=== PATIENT | female | born 1940 | race Caucasian/White ===

== ENCOUNTER 2019-04-05 11:26 | Observation (INO) | payer MEDICARE ==
--- NOTE | 2019-04-05 11:51 | ED ---
General Adult HPI - General Chief complaint: Altered Mental Status Stated complaint: dementia/UTI-sent by Dr. Meeks Seen by Provider: 04/05/19 11:40 Source: patient, family, RN notes reviewed Mode of arrival: wheelchair Limitations: no limitations - History of Present Illness Initial comments: Patient is a 78-year-old female presenting to the emergency department from Dr. Westbrook office. Patient reportedly has been more agitated and confused than normal. Patient does have chronic dementia. Patient has recent diagnosis of urinary tract infection and has been refusing her medications. Patient states she has no complaints and requests to leave. Patient limits providing history and exam. - Related Data Home Medications Medication Instructions Recorded Confirmed Aspirin EC [Ecotrin Low Dose] 81 mg PO DAILY 04/05/19 04/05/19 Atenolol [Tenormin] 50 mg PO DAILY 04/05/19 04/05/19 Atorvastatin [Lipitor] 20 mg PO DAILY 04/05/19 04/05/19 Cholecalciferol (Vitamin D3) 2,000 unit PO DAILY 04/05/19 04/05/19 [Vitamin D3] Ciprofloxacin HCl [Cipro] 500 mg PO BID 04/05/19 04/05/19 Losartan Potassium 100 mg PO DAILY 04/05/19 04/05/19 Allergies Allergy/AdvReac Type Severity Reaction Status Date / Time No Known Allergies Allergy Verified 04/05/19 11:47 Review of Systems ROS Statement: Those systems with pertinent positive or pertinent negative responses have been documented in the HPI. ROS Other: All systems not noted in ROS Statement are negative. Constitutional: Denies: fever Eyes: Denies: eye pain ENT: Denies: ear pain Respiratory: Denies: cough, dyspnea Cardiovascular: Denies: chest pain Endocrine: Denies: fatigue Gastrointestinal: Denies: abdominal pain Genitourinary: Reports: as per HPI Skin: Denies: rash Neurological: Reports: as per HPI. Denies: weakness Past Medical History Past Medical History: Hypertension Additional Past Medical History / Comment(s): UTI, Colitis, Glaucoma History of Any Multi-Drug Resistant Organisms: None Reported Past Surgical History: Appendectomy, Cholecystectomy Past Psychological History: No Psychological Hx Reported Smoking Status: Never smoker Past Alcohol Use History: None Reported Past Drug Use History: None Reported General Exam Limitations: no limitations General appearance: alert, in no apparent distress Head exam: Present: atraumatic Eye exam: Present: normal appearance Neck exam: Present: normal inspection Respiratory exam: Present: normal lung sounds bilaterally Cardiovascular Exam: Present: regular rate, normal rhythm GI/Abdominal exam: Present: soft. Absent: tenderness Extremities exam: Present: normal inspection Neurological exam: Present: alert, normal gait. Absent: motor sensory deficit Psychiatric exam: Present: agitated Skin exam: Present: normal color. Absent: rash Course Vital Signs 04/05/19 04/05/19 04/05/19 11:34 12:23 16:00 Temperature 97 F L Pulse Rate 69 Respiratory 18 18 16 Rate O2 Sat by Pulse 94 L Oximetry EKG Findings - EKG Comments: EKG Findings:: Sinus bradycardia 52. PA 182. QRS 86. QT 490. QTC 463. Normal axis. Septal Q waves. T-wave inversion V5 V6. Medical Decision Making - Medical Decision Making Case was discussed with Dr. Westbrook, who will admit his patient. - Lab Data Result diagrams: 04/05/19 15:10 04/05/19 13:00 Lab Results 04/05/19 04/05/19 04/05/19 Range/Units 13:00 13:26 13:26 WBC (3.8-10.6) k/uL RBC (3.80-5.40) m/uL Hgb (11.4-16.0) gm/dL Hct (34.0-46.0) % MCV (80.0-100.0) fL MCH (25.0-35.0) pg MCHC (31.0-37.0) g/dL RDW (11.5-15.5) % Plt Count (150-450) k/uL Neutrophils % % Lymphocytes % % Monocytes % % Eosinophils % % Basophils % % Neutrophils # (1.3-7.7) k/uL Lymphocytes # (1.0-4.8) k/uL Monocytes # (0-1.0) k/uL Eosinophils # (0-0.7) k/uL Basophils # (0-0.2) k/uL PT 9.4 (9.0-12.0) sec INR 0.8 (<1.2) APTT 22.0 (22.0-30.0) sec Sodium 137 (137-145) mmol/L Potassium 4.5 (3.5-5.1) mmol/L Chloride 106 (98-107) mmol/L Carbon Dioxide 23 (22-30) mmol/L Anion Gap 8 mmol/L BUN 13 (7-17) mg/dL Creatinine 0.81 (0.52-1.04) mg/dL Est GFR (CKD-EPI)AfAm 82 (>60 ml/min/1.73 sqM) Est GFR (CKD-EPI)NonAf 71 (>60 ml/min/1.73 sqM) Glucose 110 H (74-99) mg/dL Calcium 8.9 (8.4-10.2) mg/dL Total Bilirubin 1.1 (0.2-1.3) mg/dL AST 25 (14-36) U/L ALT 19 (9-52) U/L Alkaline Phosphatase 61 (38-126) U/L Creatine Kinase 69 (30-135) U/L Troponin I <0.012 (0.000-0.034) ng/mL Total Protein 5.8 L (6.3-8.2) g/dL Albumin 3.2 L (3.5-5.0) g/dL Urine Color Urine Appearance (Clear) Urine pH (5.0-8.0) Ur Specific [place] (1.001-1.035) Urine Protein (Negative) Urine Glucose (UA) (Negative) Urine Ketones (Negative) Urine Blood (Negative) Urine Nitrite (Negative) Urine Bilirubin (Negative) Urine Urobilinogen (<2.0) mg/dL Ur Leukocyte Esterase (Negative) Urine RBC (0-5) /hpf Urine WBC (0-5) /hpf Ur Squamous Epith Cells (0-4) /hpf Urine Bacteria (None) /hpf Hyaline Casts (0-2) /lpf Urine Mucus (None) /hpf 04/05/19 04/05/19 Range/Units 15:10 16:11 WBC 10.1 (3.8-10.6) k/uL RBC 4.32 (3.80-5.40) m/uL Hgb 12.3 (11.4-16.0) gm/dL Hct 38.0 (34.0-46.0) % MCV 88.0 (80.0-100.0) fL MCH 28.5 (25.0-35.0) pg MCHC 32.4 (31.0-37.0) g/dL RDW 14.3 (11.5-15.5) % Plt Count 213 (150-450) k/uL Neutrophils % 83 % Lymphocytes % 9 % Monocytes % 5 % Eosinophils % 1 % Basophils % 0 % Neutrophils # 8.4 H (1.3-7.7) k/uL Lymphocytes # 0.9 L (1.0-4.8) k/uL Monocytes # 0.5 (0-1.0) k/uL Eosinophils # 0.1 (0-0.7) k/uL Basophils # 0.0 (0-0.2) k/uL PT (9.0-12.0) sec INR (<1.2) APTT (22.0-30.0) sec Sodium (137-145) mmol/L Potassium (3.5-5.1) mmol/L Chloride (98-107) mmol/L Carbon Dioxide (22-30) mmol/L Anion Gap mmol/L BUN (7-17) mg/dL Creatinine (0.52-1.04) mg/dL Est GFR (CKD-EPI)AfAm (>60 ml/min/1.73 sqM) Est GFR (CKD-EPI)NonAf (>60 ml/min/1.73 sqM) Glucose (74-99) mg/dL Calcium (8.4-10.2) mg/dL Total Bilirubin (0.2-1.3) mg/dL AST (14-36) U/L ALT (9-52) U/L Alkaline Phosphatase (38-126) U/L Creatine Kinase (30-135) U/L Troponin I (0.000-0.034) ng/mL Total Protein (6.3-8.2) g/dL Albumin (3.5-5.0) g/dL Urine Color Yellow Urine Appearance Clear (Clear) Urine pH 7.5 (5.0-8.0) Ur Specific [place] 1.010 (1.001-1.035) Urine Protein 3+ H (Negative) Urine Glucose (UA) Negative (Negative) Urine Ketones Negative (Negative) Urine Blood Negative (Negative) Urine Nitrite Negative (Negative) Urine Bilirubin Negative (Negative) Urine Urobilinogen <2.0 (<2.0) mg/dL Ur Leukocyte Esterase Negative (Negative) Urine RBC <1 (0-5) /hpf Urine WBC 1 (0-5) /hpf Ur Squamous Epith Cells <1 (0-4) /hpf Urine Bacteria Rare H (None) /hpf Hyaline Casts 1 (0-2) /lpf Urine Mucus Rare H (None) /hpf - Radiology Data Radiology results: report reviewed (Computed tomography scan the brain shows no acute intercranial hemorrhage or shift. Atrophy, old lacunar injury.), image reviewed (Chest x-ray shows no acute process) Disposition Clinical Impression: Altered mental status, Syncope Disposition: ADMITTED IP TO THIS HOSP Is patient prescribed a controlled substance at d/c from ED?: No Referrals: Mikie Westbrook MD [Primary Care Provider] - 1-2 days Decision Time: 16:44
[2019-04-05] MEDS ORDERED: LORazepam 1 MG TAB PO STA (12:15)
[2019-04-05 13:29] LABS: Albumin 3.2 g/dL (3.5-5.0); Calcium 8.9 mg/dL (8.4-10.2); Potassium 4.5 mmol/L (3.5-5.1); Total Bilirubin 1.1 mg/dL (0.2-1.3); Total Protein 5.8 g/dL (6.3-8.2)
[2019-04-05 13:51] LABS: INR 0.8 (<1.2); Prothrombin Time 9.4 sec (9.0-12.0)
--- NOTE | 2019-04-05 14:15 | CT ---
EXAMINATION TYPE: CT brain wo con DATE OF EXAM: 04/05/2019 COMPARISON: None HISTORY: Dementia, UTI-sent by Altered mental status. CT DLP: 2194.4 mGycm Automated exposure control for dose reduction was used. TECHNIQUE: CT scan of the head is performed without contrast. FINDINGS: There is no acute intracranial hemorrhage or midline shift identified. No suspicious extr a-axial fluid collection. There is diffuse ventricular and sulcal prominence consistent with diffuse age-related cerebral atrophy. There is low-attenuation in the periventricular white most commonly re lated to chronic small vessel ischemic change. Extensive atherosclerosis is seen in the intracranial arteries. There is also an old lacunar injury of the right thalamus. The globes are intact and the v isualized sinuses are clear. IMPRESSION: 1. No acute intracranial hemorrhage or midline shift. 2. Diffuse age-related cerebral atrophy and confluent areas of hypoattenuation most commonly related to microangiopathy. 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
--- NOTE | 2019-04-05 15:09 | XR ---
EXAMINATION TYPE: XR chest 2V DATE OF EXAM: 04/05/2019 COMPARISON: NONE HISTORY: Altered mental status TECHNIQUE: Frontal and lateral views of the chest are obtained. FINDINGS: There is an enlarged cardiomediastinal silhouette. Minimal retrocardiac airspace disease l ikely represents atelectasis. Advanced arthropathy of the right shoulder is noted. Mild degenerative changes of the spine and diffuse osseous demineralization. Cholecystectomy clips are seen. No pneumot horax or pleural effusion. IMPRESSION: Minimal retrocardiac airspace disease likely represents atelectasis.
[2019-04-05 15:20] LABS: Basophils % (A) 0 %; Eosinophils # (A) 0.1 k/uL (0-0.7); Eosinophils % (A) 1 %; HGB 12.3 gm/dL (11.4-16.0); Lymphocytes # (A) 0.9 k/uL (1.0-4.8); Lymphocytes % (A) 9 %; MCH 28.5 pg (25.0-35.0); MCHC 32.4 g/dL (31.0-37.0); Mean Platelet Volume 6.6; Monocytes # (A) 0.5 k/uL (0-1.0); Monocytes % (A) 5 %; Neutrophils # (A) 8.4 k/uL (1.3-7.7); Neutrophils % (A) 83 %; Platelet Count 213 k/uL (150-450); RBC 4.32 m/uL (3.80-5.40); RDW 14.3 % (11.5-15.5); WBC 10.1 k/uL (3.8-10.6)
[2019-04-05] MEDS ORDERED: LORazepam 2 MG/ML INJ IV STA (15:36)
[2019-04-05 16:31] LABS: Appearance,Urine Clear (Clear); Bacteria,Urine Rare /hpf; Bilirubin,Urine Negative (Negative); Blood,Urine Negative (Negative); Color,Urine Yellow; Glucose,Urine (UA) Negative (Negative); Hyaline Casts,Urine 1 /lpf (0-2); Ketones,Urine Negative (Negative); Leukocyte Esterase,Urine Negative (Negative); Mucus,Urine Rare /hpf; Nitrite,Urine Negative (Negative); PH, Urine 7.5 (5.0-8.0); Protein,Urine 3+ (Negative); RBC,Urine <1 /hpf (0-5); Squamous Epithelial Cell,Urine <1 /hpf (0-4); Urobilinogen,Urine <2.0 mg/dL (<2.0); WBC,Urine 1 /hpf (0-5)
[2019-04-05 16:44] LABS: Amphetamine Screen,Urine Not Detected (NotDetected); Barbiturate Screen,Urine Not Detected (NotDetected); Benzodiazepines Screen,Urine Detected (NotDetected); Cocaine Screen,Urine Not Detected (NotDetected); Methadone Screen, Urine Not Detected (NotDetected); Opiate Screen,Urine Not Detected (NotDetected); Oxycodone Screen, Urine Not Detected (NotDetected); Phencyclidine Screen,Urine Not Detected (NotDetected); Tricyclic Antidepressant,Urine Not Detected (NotDetected); Urn Cannabinoid Scrn Not Detected (NotDetected)
[2019-04-05] MEDS ORDERED: NALOXONE 0.4 MG/ML 1 ML VIAL IV PRN (16:45)
[2019-04-05] MEDS ORDERED: LORazepam 0.5 MG TAB PO PRN (16:45)
[2019-04-05] MEDS ORDERED: LORazepam 2 MG/ML INJ IV PRN ×2 (16:45→20:14)
[2019-04-05] MEDS ORDERED: SODIUM CHLORIDE 0.9% 1,000 ML IV SCH (16:45)
[2019-04-05] MEDS ORDERED: ACETAMINOPHEN TAB 325 MG TAB PO PRN (16:45)
[2019-04-05] MEDS ORDERED: ALPRAZolam 0.25 MG TAB PO PRN (16:45)
[2019-04-05] MEDS: ATENOLOL 50 MG TAB PO SCH (20:57)
[2019-04-05] MEDS: amLODIPine 5 MG TAB PO SCH (20:57)
[2019-04-05] MEDS: CIPROFLOXACIN HCL 500 MG TAB PO SCH (20:57)
[2019-04-05] MEDS ORDERED: hydrALAZINE HCL 20 MG/ML 1 ML VIAL IVP PRN (22:02)
--- NOTE | 2019-04-06 08:43 | P.HPIM ---
History of Present Illness H&P Date: 04/06/19 Chief Complaint: Altered mental status This is a history of physical 78-year-old white female who is been declining from a cognitive perspective over the last several years. Element of dementia as noted but she had delirium yesterday and has been difficult to take care of. Also, element of hypertensive urgency was noted yesterday. No sniffing chest pain but the patient is unable to give any type of complaints. Element of headache stated she was evaluated in the emergency room and is now admitted for appropriate altered mental status agitation syncope and hypertension. Review of Systems ROS unobtainable: due to mental status Past Medical History Past Medical History: Dementia, Hypertension Additional Past Medical History / Comment(s): UTI, Colitis, Glaucoma History of Any Multi-Drug Resistant Organisms: None Reported Past Surgical History: Appendectomy, Cholecystectomy Past Psychological History: Anxiety Smoking Status: Never smoker Past Alcohol Use History: None Reported Past Drug Use History: None Reported Medications and Allergies Home Medications Medication Instructions Recorded Confirmed Type Aspirin EC [Ecotrin Low Dose] 81 mg PO DAILY 04/05/19 04/05/19 History Atenolol [Tenormin] 50 mg PO DAILY 04/05/19 04/05/19 History Atorvastatin [Lipitor] 20 mg PO DAILY 04/05/19 04/05/19 History Cholecalciferol (Vitamin D3) 2,000 unit PO DAILY 04/05/19 04/05/19 History [Vitamin D3] Ciprofloxacin HCl [Cipro] 500 mg PO BID 04/05/19 04/05/19 History RX: Losartan Potassium 100 mg PO DAILY 04/05/19 04/05/19 History Allergies Allergy/AdvReac Type Severity Reaction Status Date / Time No Known Allergies Allergy Verified 04/05/19 11:47 Physical Exam Vitals: Vital Signs Temp Pulse Pulse Pulse Resp BP BP 04/06/19 05:00 97.7 F 66 18 176/79 04/05/19 23:40 63 69 18 181/92 04/05/19 21:00 60 18 238/132 04/05/19 19:46 63 18 232/122 04/05/19 18:25 97.9 F 66 18 172/83 04/05/19 17:32 97.6 F 16 04/05/19 16:00 16 04/05/19 12:23 18 04/05/19 11:34 97 F L 69 18 Pulse Ox 04/06/19 05:00 98 04/05/19 23:40 04/05/19 21:00 04/05/19 19:46 97 04/05/19 18:25 100 04/05/19 17:32 04/05/19 16:00 04/05/19 12:23 04/05/19 11:34 94 L Intake and Output 04/05/19 04/06/19 04/06/19 22:59 06:59 14:59 Other: Voiding Method Toilet # Voids 1 1 # Bowel Movements 1 - Constitutional General appearance: no acute distress - EENT Eyes: EOMI - Neck Neck: no lymphadenopathy - Respiratory Respiratory: bilateral: CTA - Cardiovascular Rhythm: regular Heart sounds: normal: S1, S2 Abnormal Heart Sounds: no S3 Gallop - Gastrointestinal General gastrointestinal: soft, no tenderness - Psychiatric Psychiatric: no A&O x's 3, no intact judgment & insight Results CBC & Chem 7: 04/05/19 15:10 04/05/19 13:00 Labs: Abnormal Lab Results - Last 24 Hours (Table) 04/05/19 04/05/19 04/05/19 Range/Units 13:00 15:10 16:11 Neutrophils # 8.4 H (1.3-7.7) k/uL Lymphocytes # 0.9 L (1.0-4.8) k/uL Glucose 110 H (74-99) mg/dL Total Protein 5.8 L (6.3-8.2) g/dL Albumin 3.2 L (3.5-5.0) g/dL Urine Protein 3+ H (Negative) Urine Bacteria Rare H (None) /hpf Urine Mucus Rare H (None) /hpf U Benzodiazepines Scrn Detected H (NotDetected) Microbiology - Last 24 Hours (Table) 04/05/19 16:11 Urine Culture - Preliminary Urine,Catheterized Thrombosis Risk Factor Assmnt - Choose All That Apply Any of the Below Risk Factors Present?: No Other Risk Factors: Yes Each Risk Factor Represents 3 Points: Age 75 years or older Other congenital or acquired thrombophilia - If yes, enter type in comment: No Thrombosis Risk Factor Assessment Total Risk Factor Score: 3 Thrombosis Risk Factor Assessment Level: Moderate Risk Assessment and Plan (1) Dementia Current Visit: Yes Status: Acute Code(s): F03.90 - UNSPECIFIED DEMENTIA WITHOUT BEHAVIORAL DISTURBANCE SNOMED Code(s): 87103567 (2) Hypertensive urgency Current Visit: Yes Status: Acute Code(s): I16.0 - HYPERTENSIVE URGENCY SNOMED Code(s): 577928760 (3) Altered mental status Current Visit: Yes Status: Acute Code(s): R41.82 - ALTERED MENTAL STATUS, UNSPECIFIED SNOMED Code(s): 929123346 Plan: Cardiology and neurology have been consulted. Check CBC and CMP in a.m. Titrate medication. She's been started on hydralazine. Otherwise, await neurologic evaluation. The patient's family preference is to try to take her home with home health. See orders otherwise. Time with Patient: Greater than 30
[2019-04-06] MEDS ORDERED: ASPIRIN 81 MG PO SCH (09:00)
[2019-04-06] MEDS ORDERED: CHOLECALCIFEROL 1,000 UNIT TAB PO SCH (09:00)
[2019-04-06] MEDS ORDERED: LOSARTAN 50 MG TAB PO SCH (09:00)
[2019-04-06] MEDS ORDERED: ATORVASTATIN 20 MG TAB PO SCH (09:00)
[2019-04-06 09:22] LABS: Basophils % (A) 1 %; Eosinophils # (A) 0.1 k/uL (0-0.7); Eosinophils % (A) 2 %; HCT 34.6 % (34.0-46.0); HGB 11.5 gm/dL (11.4-16.0); Lymphocytes # (A) 1.1 k/uL (1.0-4.8); Lymphocytes % (A) 17 %; MCH 29.1 pg (25.0-35.0); MCHC 33.3 g/dL (31.0-37.0); MCV 87.4 fL (80.0-100.0); Mean Platelet Volume 6.7; Monocytes # (A) 0.5 k/uL (0-1.0); Monocytes % (A) 7 %; Neutrophils # (A) 4.7 k/uL (1.3-7.7); Neutrophils % (A) 71 %; Platelet Count 208 k/uL (150-450); RBC 3.95 m/uL (3.80-5.40); RDW 14.1 % (11.5-15.5); WBC 6.5 k/uL (3.8-10.6)
[2019-04-06] MEDS: amLODIPine 5 MG TAB PO SCH (10:00)
[2019-04-06] MEDS: CIPROFLOXACIN HCL 500 MG TAB PO SCH (10:00)
[2019-04-06] MEDS: ATENOLOL 50 MG TAB PO SCH (10:00)
--- NOTE | 2019-04-06 11:30 | P.CRDCN ---
<Kavitha Restrepo - Last Filed: 04/06/19 10:56> History of Present Illness History of present illness: This is Kavitha Restrepo PA-C dictating a consult on this patient The patient was interviewed and examined by me as well as by Dr. Howard Case discussed with Dr. Howard and he agrees with the plan of care IMPRESSION / ASSESSMENT: Syncopal episode, etiology unclear, possibly related to Ativan, brain CT showed no acute intracranial hemorrhage or midline shift Hypertension, blood pressure has been elevated since admission Dementia PLAN: Increase amlodipine to 5 mg twice a day Decrease atenolol 50 mg daily to avoid bradycardia Discontinue IV hydralazine Recommend manual blood pressure with appropriate cuff size Check TSH Check orthostatic vitals HPI Patient is a 78-year-old female with a past medical history of hypertension and dementia who presented to the emergency department with altered mental status and a syncopal episode. Patient is a poor historian secondary to her dementia, her history was obtained from the chart as well as her [id number] who was present at the bedside. Patient has apparently been more confused and combative and went to see her primary care doctor who gave her Ativan. After receiving the Ativan she apparently collapsed and was sent to the emergency department. Upon presentation her blood pressure was elevated at 172/83, pulse was 69. EKG showed sinus bradycardia with asymmetric T-wave inversions in the lateral precordial leads. Troponins negative 3. She was started on her home antihypertensive medications atenolol and losartan as well as started on Norvasc and hydralazine. Her blood pressure has remained elevated. Patient seen and examined resting comfortably in bed. Nursing staff has been able to get her up to the bathroom and she seems more weak than normal according to her [id number]. Patient complains of a slight headache but otherwise denies any other symptoms. denies chest pain, palpitations, shortness of breath, dizzin ess, lightheadedness. Per family, she is a nondiabetic and has no history of heart disease or strokes, she has passed out one time years ago when she was dehydrated in [place] ROS: Unable to obtain secondary to altered mental status EXAMINATION: Temperature is 97.7F, pulse 66, respirations 18, blood pressure 176/79, oxygen saturation 98% on room air Patient seen and examined resting comfortably in bed, in no acute distress Lung exam is difficult secondary to patient unable to follow commands to take a deep breath, breath sounds clear Heart is regular, normal S1-S2, no murmurs appreciated No lower extremity edema noted No elevated JVD REVIEW OF LABS, ECG & MEDICAL DATA Chest x-ray showed atelectasis, no pneumothorax or pleural effusion Brain CT showed no acute intracranial hemorrhage or midline shift, diffuse age- related cerebral atrophy, 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 WBC 6.5, hemoglobin 11.5, platelet count 208, potassium 4.5, sodium 137, BUN 13, creatinine 0.81, troponins negative 3 EKG showed sinus bradycardia with asymmetrical T-wave inversions in the lateral precordial leads Past Medical History Past Medical History: Dementia, Hypertension Additional Past Medical History / Comment(s): UTI, Colitis, Glaucoma History of Any Multi-Drug Resistant Organisms: None Reported Past Surgical History: Appendectomy, Cholecystectomy Past Psychological History: Anxiety Smoking Status: Never smoker Past Alcohol Use History: None Reported Past Drug Use History: None Reported Medications and Allergies Home Medications Medication Instructions Recorded Confirmed Type Aspirin EC [Ecotrin Low Dose] 81 mg PO DAILY 04/05/19 04/05/19 History Atenolol [Tenormin] 50 mg PO DAILY 04/05/19 04/05/19 History Atorvastatin [Lipitor] 20 mg PO DAILY 04/05/19 04/05/19 History Cholecalciferol (Vitamin D3) 2,000 unit PO DAILY 04/05/19 04/05/19 History [Vitamin D3] Ciprofloxacin HCl [Cipro] 500 mg PO BID 04/05/19 04/05/19 History Losartan Potassium 100 mg PO DAILY 04/05/19 04/05/19 History Allergies Allergy/AdvReac Type Severity Reaction Status Date / Time No Known Allergies Allergy Verified 04/05/19 11:47 Physical Exam Vitals: Vital Signs Temp Pulse Pulse Pulse Resp BP BP 04/06/19 05:00 97.7 F 66 18 176/79 04/05/19 23:40 63 69 18 181/92 04/05/19 21:00 60 18 238/132 04/05/19 19:46 63 18 232/122 04/05/19 18:25 97.9 F 66 18 172/83 04/05/19 17:32 97.6 F 16 04/05/19 16:00 16 04/05/19 12:23 18 04/05/19 11:34 97 F L 69 18 Pulse Ox 04/06/19 05:00 98 04/05/19 23:40 04/05/19 21:00 04/05/19 19:46 97 04/05/19 18:25 100 04/05/19 17:32 04/05/19 16:00 04/05/19 12:23 04/05/19 11:34 94 L Intake and Output 04/05/19 04/06/19 04/06/19 22:59 06:59 14:59 Other: Voiding Method Toilet # Voids 1 1 # Bowel Movements 1 1 Results 04/06/19 08:23 04/05/19 13:00 Cardiac Enzymes 04/05/19 04/05/19 04/05/19 Range/Units 13:00 13:26 19:44 AST 25 (14-36) U/L Troponin I <0.012 <0.012 (0.000-0.034) ng/mL 04/06/19 04/06/19 Range/Units 01:07 08:23 AST (14-36) U/L Troponin I <0.012 <0.012 (0.000-0.034) ng/mL Coagulation 04/05/19 Range/Units 13:26 PT 9.4 (9.0-12.0) sec APTT 22.0 (22.0-30.0) sec CBC 04/05/19 04/06/19 Range/Units 15:10 08:23 WBC 10.1 6.5 (3.8-10.6) k/uL RBC 4.32 3.95 (3.80-5.40) m/uL Hgb 12.3 11.5 (11.4-16.0) gm/dL Hct 38.0 34.6 (34.0-46.0) % Plt Count 213 208 (150-450) k/uL Comprehensive Metabolic Panel 04/05/19 Range/Units 13:00 Sodium 137 (137-145) mmol/L Potassium 4.5 (3.5-5.1) mmol/L Chloride 106 (98-107) mmol/L Carbon Dioxide 23 (22-30) mmol/L BUN 13 (7-17) mg/dL Creatinine 0.81 (0.52-1.04) mg/dL Glucose 110 H (74-99) mg/dL Calcium 8.9 (8.4-10.2) mg/dL AST 25 (14-36) U/L ALT 19 (9-52) U/L Alkaline Phosphatase 61 (38-126) U/L Total Protein 5.8 L (6.3-8.2) g/dL Albumin 3.2 L (3.5-5.0) g/dL Current Medications Generic Name Dose Route Start Last Admin Trade Name Freq PRN Reason Stop Dose Admin Acetaminophen 650 mg 04/05/19 16:45 Tylenol Tab PO Q6HR PRN Mild Pain or Fever > 100.5 Alprazolam 0.25 mg 04/05/19 16:45 04/05/19 20:57 Xanax PO 0.25 mg Q6HR PRN Administration Anxiety Amlodipine Besylate 5 mg 04/05/19 20:15 04/06/19 10:00 Norvasc PO 5 mg DAILY LASHON Administration Aspirin 81 mg 04/06/19 09:00 04/06/19 10:00 Aspirin PO 81 mg DAILY LASHON Administration Atenolol 50 mg 04/05/19 21:00 04/06/19 10:00 Tenormin PO 50 mg BID LASHON Administration Atorvastatin Calcium 20 mg 04/06/19 09:00 04/06/19 10:00 Lipitor PO 20 mg DAILY LASHON Administration Cholecalciferol 2,000 unit 04/06/19 09:00 04/06/19 09:59 Vitamin D3 (25 Mcg = 1000 Iu) PO 2,000 unit DAILY LASHON Administration Ciprofloxacin 500 mg 04/05/19 21:00 04/06/19 10:00 Cipro PO 500 mg BID LASHON Administration Hydralazine HCl 10 mg 04/05/19 22:02 04/05/19 22:20 Apresoline IVP 10 mg Q8HR PRN Administration Blood Pressure - High Sodium Chloride 1,000 mls @ 20 mls/hr 04/05/19 16:45 04/05/19 18:34 Saline 0.9% IV 20 mls/hr .Q24H LASHON Administration Lorazepam 0.5 mg 04/05/19 16:45 Ativan IV Q6HR PRN Anxiety Lorazepam 0.5 mg 04/05/19 16:45 Ativan PO Q6HR PRN Anxiety Lorazepam 1 mg 04/05/19 20:14 Ativan IV Q6HR PRN Anxiety Losartan Potassium 100 mg 04/06/19 09:00 04/06/19 10:00 Cozaar PO 100 mg DAILY LASHON Administration Naloxone HCl 0.2 mg 04/05/19 16:45 Narcan IV Q2M PRN Opioid Reversal Intake and Output 04/05/19 04/06/19 04/06/19 22:59 06:59 14:59 Other: Voiding Method Toilet # Voids 1 1 # Bowel Movements 1 1 04/06/19 08:23 04/05/19 13:00 <Jacob Howard - Last Filed: 04/06/19 11:29> History of Present Illness History of present illness: History from [id number]. Patient apparently collapsed in the doctor's office. Blood pressure was elevated Heart rates in the 50s and 60s She is on atenolol 50 g once daily and I will go back to this dose Amlodipine is being increased a grams twice daily Atorvastatin is to take manual blood pressures with an appropriately sized smaller cuff Avoid IV hydralazine Physical Exam Vitals: Vital Signs Temp Pulse Pulse Pulse Resp BP BP 04/06/19 05:00 97.7 F 66 18 176/79 04/05/19 23:40 63 69 18 181/92 04/05/19 21:00 60 18 238/132 04/05/19 19:46 63 18 232/122 04/05/19 18:25 97.9 F 66 18 172/83 04/05/19 17:32 97.6 F 16 04/05/19 16:00 16 04/05/19 12:23 18 04/05/19 11:34 97 F L 69 18 Pulse Ox 04/06/19 05:00 98 04/05/19 23:40 04/05/19 21:00 04/05/19 19:46 97 04/05/19 18:25 100 04/05/19 17:32 04/05/19 16:00 04/05/19 12:23 04/05/19 11:34 94 L Intake and Output 04/05/19 04/06/19 04/06/19 22:59 06:59 14:59 Other: Voiding Method Toilet # Voids 1 1 # Bowel Movements 1 1 Results 04/06/19 08:23 04/05/19 13:00 Cardiac Enzymes 04/05/19 04/05/19 04/05/19 Range/Units 13:00 13:26 19:44 AST 25 (14-36) U/L Troponin I <0.012 <0.012 (0.000-0.034) ng/mL 04/06/19 04/06/19 Range/Units 01:07 08:23 AST (14-36) U/L Troponin I <0.012 <0.012 (0.000-0.034) ng/mL Coagulation 04/05/19 Range/Units 13:26 PT 9.4 (9.0-12.0) sec APTT 22.0 (22.0-30.0) sec CBC 04/05/19 04/06/19 Range/Units 15:10 08:23 WBC 10.1 6.5 (3.8-10.6) k/uL RBC 4.32 3.95 (3.80-5.40) m/uL Hgb 12.3 11.5 (11.4-16.0) gm/dL Hct 38.0 34.6 (34.0-46.0) % Plt Count 213 208 (150-450) k/uL Comprehensive Metabolic Panel 04/05/19 Range/Units 13:00 Sodium 137 (137-145) mmol/L Potassium 4.5 (3.5-5.1) mmol/L Chloride 106 (98-107) mmol/L Carbon Dioxide 23 (22-30) mmol/L BUN 13 (7-17) mg/dL Creatinine 0.81 (0.52-1.04) mg/dL Glucose 110 H (74-99) mg/dL Calcium 8.9 (8.4-10.2) mg/dL AST 25 (14-36) U/L ALT 19 (9-52) U/L Alkaline Phosphatase 61 (38-126) U/L Total Protein 5.8 L (6.3-8.2) g/dL Albumin 3.2 L (3.5-5.0) g/dL Current Medications Generic Name Dose Route Start Last Admin Trade Name Freq PRN Reason Stop Dose Admin Acetaminophen 650 mg 04/05/19 16:45 Tylenol Tab PO Q6HR PRN Mild Pain or Fever > 100.5 Alprazolam 0.25 mg 04/05/19 16:45 04/05/19 20:57 Xanax PO 0.25 mg Q6HR PRN Administration Anxiety Amlodipine Besylate 5 mg 04/06/19 21:00 Norvasc PO BID COUNTS INCLUDE 234 BEDS AT THE [facility] Aspirin 81 mg 04/06/19 09:00 04/06/19 10:00 Aspirin PO 81 mg DAILY LASHON Administration Atenolol 50 mg 04/07/19 09:00 Tenormin PO DAILY LASHON Atorvastatin Calcium 20 mg 04/06/19 09:00 04/06/19 10:00 Lipitor PO 20 mg DAILY LASHON Administration Cholecalciferol 2,000 unit 04/06/19 09:00 04/06/19 09:59 Vitamin D3 (25 Mcg = 1000 Iu) PO 2,000 unit DAILY COUNTS INCLUDE 234 BEDS AT THE [facility] Administration Ciprofloxacin 500 mg 04/05/19 21:00 04/06/19 10:00 Cipro PO 500 mg BID LASHON Administration Hydralazine HCl 10 mg 04/05/19 22:02 04/05/19 22:20 Apresoline IVP 10 mg Q8HR PRN Administration Blood Pressure - High Sodium Chloride 1,000 mls @ 20 mls/hr 04/05/19 16:45 04/05/19 18:34 Saline 0.9% IV 20 mls/hr .Q24H LASHON Administration Lorazepam 0.5 mg 04/05/19 16:45 Ativan IV Q6HR PRN Anxiety Lorazepam 0.5 mg 04/05/19 16:45 Ativan PO Q6HR PRN Anxiety Lorazepam 1 mg 04/05/19 20:14 Ativan IV Q6HR PRN Anxiety Losartan Potassium 100 mg 04/06/19 09:00 04/06/19 10:00 Cozaar PO 100 mg DAILY COUNTS INCLUDE 234 BEDS AT THE [facility] Administration Naloxone HCl 0.2 mg 04/05/19 16:45 Narcan IV Q2M PRN Opioid Reversal Intake and Output 04/05/19 04/06/19 04/06/19 22:59 06:59 14:59 Other: Voiding Method Toilet # Voids 1 1 # Bowel Movements 1 1 04/06/19 08:23 04/05/19 13:00
[2019-04-06 12:17] VITALS: PULSE 57; RESP 17; TEMP 96.8
[2019-04-06 13:32] VITALS: BP 156/86
--- NOTE | 2019-04-06 17:20 | P.CNNES ---
History of Present Illness Consult date: 04/06/19 Reason for Consult: Syncope altered mental status Chief complaint: Syncope altered mental status History of Present Illness: REFERRING PHYSICIAN: Dr. Mikie Westbrook HISTORY OF PRESENT ILLNESS: Thank you for allowing me to evaluate Ms. Vale Solis. Ms. Solis is a 78 year-old woman with PMHx of dementia, HTN, glaucoma, colitis and anxiety, who initially was at her PCP clinic when she became very irritable and the clinic and family decided that it would be difficult to take care of patient at home and brought her [facility]. Per family, patient has always stayed inside the house, rarely went out. Her house is her safe haven, and she just wants to go home now. Patient often becomes more awake and alert at night time, and either the or the daughter has to walk around the neighborhood with her to calm her down and bring her back to their house. Daughter wanted some medication to calm her down at night time, and PCP was going to try melatonin. Yesterday, when patient came to the ED, patient got some medication (ativan) after which she passed out, eyes rolled back. No urinary/bowel incontinence or tongue biting. No abnormal movements noted. Patient has seen a neurologist, but a medication the neurologist gave patient made her sleep 17-18 hours per day, so they stopped giving her the medication and also stopped going to the neurologist. Family denies patient having any recent sickness, headache, nausea, vomiting, weakness, dizziness, falls. PAST MEDICAL HISTORY: Dementia, hypertension, glaucoma, colitis, anxiety PAST SURGICAL HISTORY: Appendectomy, cholecystectomy HOME MEDICATIONS: Ciprofloxacin, vitamin D, atorvastatin 20, atenolol, aspirin, losartan ALLERGIES: NO KNOWN DRUG ALLERGIES SOCIAL HISTORY: Never smoker. No reported alcohol or drug abuse history. REVIEW OF SYSTEMS: The 14 systems are reviewed and no additional points are identified compared to the review of systems documented history and physical PHYSICAL EXAMINATION: VITAL SIGNS: Temperature 97.7 pulse rate 66 respiratory rate 18 blood pressure 176/79 O2 saturation 98% on room air GEN.: NAD, wanting to get out of bed and walk around. and daughter at bedside. HEENT: NCAT, sclera without icterus NECK: Supple SKIN AND EXTREMITIES: Warm to touch, no edema NEURO: MENTAL STATUS: Patient alert, able to say her name and 's name. Does not know where she is or the year. CRANIAL NERVES II THROUGH XII: II: Pupils are equal and reactive to light symmetrically. III, IV, : No ptosis. Extraocular movements full. No nystagmus. V: Facial sensation intact from V1-3. VII. No clear facial asymmetry. IX, X: Symmetric palate elevation. XII: Shoulder shrug intact. XII: Tongue m idline without fasciculation or atrophy. MOTOR/SENSORY/COORDINATION: Patient has difficulty following commands but grossly, at least 4+/5 in all 4 extremities. DIAGNOSTIC TESTING: LABORATORY: WBC 10.1 and 2.3 platelets 213 PT 19.4 INR 0.8 troponin <0.012 urinalysis 2+ protein otherwise negative IMAGING: CT head without contrast 04/05/2019: No acute intracranial hemorrhage or midline shift. 2. Diffuse age-related cerebral atrophy and, on areas of hypoattenuation most commonly related to microangiopathy. 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 Solis is a 78 year-old woman with PMHx of dementia, HTN, glaucoma, colitis and anxiety, who initially was at her PCP clinic when she became very irritable and the clinic and family decided that it would be difficult to take care of patient at home and brought her [facility], consulting Neurology for two episodes of losing consciousness in ED. Patient had these episodes after Ativan administration, which most likely was too potent for this patient. Patient has never had similar episodes in the past or any since last night. dentures lab technician attempted to obtain EEG today, but patient became combative, and family decided to take her back home. This patient needs to be seen by a neurologist as outpatient for better management of dementia. Family would also benefit from social work support. Neurology will sign off. Past Medical History Past Medical History: Dementia, Hypertension Additional Past Medical History / Comment(s): UTI, Colitis, Glaucoma History of Any Multi-Drug Resistant Organisms: None Reported Past Surgical History: Appendectomy, Cholecystectomy Past Psychological History: Anxiety Smoking Status: Never smoker Past Alcohol Use History: None Reported Past Drug Use History: None Reported Medications and Allergies Home Medications Medication Instructions Recorded Confirmed Type Aspirin EC [Ecotrin Low Dose] 81 mg PO DAILY 04/05/19 04/05/19 History Atenolol [Tenormin] 50 mg PO DAILY 04/05/19 04/05/19 History Atorvastatin [Lipitor] 20 mg PO DAILY 04/05/19 04/05/19 History Cholecalciferol (Vitamin D3) 2,000 unit PO DAILY 04/05/19 04/05/19 History [Vitamin D3] Ciprofloxacin HCl [Cipro] 500 mg PO BID 04/05/19 04/05/19 History Losartan Potassium 100 mg PO DAILY 04/05/19 04/05/19 History Allergies Allergy/AdvReac Type Severity Reaction Status Date / Time No Known Allergies Allergy Verified 04/05/19 11:47 Physical Examination - Vital Signs Vital Signs: Vital Signs Temp Pulse Pulse Pulse Resp BP BP 04/06/19 05:00 97.7 F 66 18 176/79 04/05/19 23:40 63 69 18 181/92 04/05/19 21:00 60 18 238/132 04/05/19 19:46 63 18 232/122 04/05/19 18:25 97.9 F 66 18 172/83 04/05/19 17:32 97.6 F 16 04/05/19 16:00 16 04/05/19 12:23 18 04/05/19 11:34 97 F L 69 18 Pulse Ox 04/06/19 05:00 98 04/05/19 23:40 04/05/19 21:00 04/05/19 19:46 97 04/05/19 18:25 100 04/05/19 17:32 04/05/19 16:00 04/05/19 12:23 04/05/19 11:34 94 L Intake and Output 04/05/19 04/06/19 04/06/19 22:59 06:59 14:59 Other: Voiding Method Toilet # Voids 1 1 # Bowel Movements 1 Results - Laboratory Findings CBC and BMP: 04/06/19 08:23 04/05/19 13:00 Abnormal Lab Findings: Abnormal Labs 04/05/19 04/05/19 04/05/19 13:00 15:10 16:11 Neutrophils # 8.4 H Lymphocytes # 0.9 L Glucose 110 H Total Protein 5.8 L Albumin 3.2 L Urine Protein 3+ H Urine Bacteria Rare H Urine Mucus Rare H U Benzodiazepines Scrn Detected H
[2019-04-06] MEDS ORDERED: amLODIPine 5 MG TAB PO SCH (21:00)
[2019-04-07] MEDS ORDERED: ATENOLOL 50 MG TAB PO SCH (09:00)
--- NOTE | 2019-05-19 17:56 | P.DS ---
Providers Date of admission: 04/05/19 16:45 Attending physician: Mikie Westbrook Consults: 04/05/19 16:46 Consult Physician Urgent Consulting Provider: Diana Perez Consult Reason/Comments: ams Do you want consulting provider notified?: Yes Consult Physician Urgent Consulting Provider: Abran Wood Consult Reason/Comments: syncope Do you want consulting provider notified?: Yes Primary care physician: Mikie Westbrook - Discharge Diagnosis(es) (1) Dementia Status: Acute (2) Hypertensive urgency Status: Acute (3) Altered mental status Status: Acute Hospital Course: This is a discharge summary on a 78-year-old white female essentially admitted for delirium. Evaluation by neurology and appropriate treatment was done. After much discussion and given the fact that she has an underlying element of dementia, the patient and the family had a long discussion about discharge disposition. The patient was transferred to home with home health knowing that the prognosis is somewhat guarded given her overall element of dementia. Patient Condition at Discharge: Fair Plan - Discharge Summary Discharge Rx Participant: No New Discharge Prescriptions: No Action Ciprofloxacin HCl [Cipro] 500 mg PO BID Cholecalciferol (Vitamin D3) [Vitamin D3] 2,000 unit PO DAILY Atorvastatin [Lipitor] 20 mg PO DAILY Atenolol [Tenormin] 50 mg PO DAILY Aspirin EC [Ecotrin Low Dose] 81 mg PO DAILY RX: Losartan Potassium 100 mg PO DAILY Discharge Medication List Aspirin EC [Ecotrin Low Dose] 81 mg PO DAILY 04/05/19 [History] Atenolol [Tenormin] 50 mg PO DAILY 04/05/19 [History] Atorvastatin [Lipitor] 20 mg PO DAILY 04/05/19 [History] Cholecalciferol (Vitamin D3) [Vitamin D3] 2,000 unit PO DAILY 04/05/19 [History] Ciprofloxacin HCl [Cipro] 500 mg PO BID 04/05/19 [History] RX: Losartan Potassium 100 mg PO DAILY 04/05/19 [History] Follow up Appointment(s)/Referral(s): [facility], [NON-STAFF] - 1-2 Days Mikie Westbrook MD [Primary Care Provider] - 1-2 days (Family to call Dr. Westbrook's office morning to schedule follow up appointment. Office is closed at time of discharge. ) Patient Instructions/Handouts: Lorazepam (By mouth), Amlodipine (By mouth), Syncope (DC), Dementia (ED), Altered Mental Status (ED) Activity/Diet/Wound Care/Special Instructions: Physician to call in prescriptions to pharmacy. Discharge Disposition: HOME WITH HOME HEALTH SERVICES
== END 2019-04-06 16:25 | disposition home health service (06) ==
LOC: EC 11:26 → 3NMEDONC 16:45
PROVIDERS: ADMIT Family Medicine; ATTEND Family Medicine
DX: R55 Syncope and collapse (principal); T42.4X5A Adverse effect of benzodiazepines, initial encounter; F03.91 Unspecified dementia, unspecified severity, with behavioral disturbance; F05 Delirium due to known physiological condition; R45.1 Restlessness and agitation; I16.0 Hypertensive urgency; N39.0 Urinary tract infection, site not specified; I10 Essential (primary) hypertension; R00.1 Bradycardia, unspecified; R51 Headache; H40.9 Unspecified glaucoma; Z90.49 Acquired absence of other specified parts of digestive tract; F41.9 Anxiety disorder, unspecified; Z79.82 Long term (current) use of aspirin; Z79.899 Other long term (current) drug therapy; Z91.14 Patient's other noncompliance with medication regimen; Z87.19 Personal history of other diseases of the digestive system; Z86.73 Personal history of transient ischemic attack (TIA), and cerebral infarction without residual deficits
CPT/HCPCS: 96376; 96375; 96374; 99285; 36415; 93005; 97162; 80053; 84443; 82550; 84484 ×2; 85025 ×2; 85610; 85730; 81001; 80306; 87086; 71046; 70450; G0378 ×2; J2060 ×2; J0360